=== PATIENT | female | born 1935 | race African-American/Black ===

== ENCOUNTER 2021-08-29 15:52 | Outpatient (CLI) | payer MEDICARE, MEDICAID | END 2021-08-29 15:53 | disposition home or self-care (01) | LOC: CSHRAD 15:52 | PROVIDERS: ATTEND Internal Medicine | DX: M79.89 Other specified soft tissue disorders (principal); M25.472 Effusion, left ankle; M19.072 Primary osteoarthritis, left ankle and foot ==